=== PATIENT | male | born 1950 | race Caucasian/White ===

== ENCOUNTER → 2017-03-19 | Outpatient (CLI) | payer OTHER ==
[2017-03-19 17:24] LABS: BASO % 0 % (0-3); EOS # 0.3 x10^3/uL (0.0-0.7); EOS % 4 % (0-3); HEMOGLOBIN 8.7 g/dL (13.0-17.5); LYMPH # 1.6 x10^3/uL (1.0-4.8); LYMPH % 24 % (24-48); MEAN CORPUSCULAR HEMOGLOBIN 28 pg (25-35); MEAN CORPUSCULAR HGB CONC 33 g/dL (31-37); MEAN CORPUSCULAR VOLUME 85 fL (79-100); MONO % 15 % (0-9); NEUT # 3.8 x10^3uL (1.8-7.7); NEUT % 56 % (31-73); PLATELET COUNT 136 x10^3/uL (140-400); RED BLOOD COUNT 3.06 x10^6/uL (4.30-5.70); RED CELL DISTRIBUTION WIDTH 18.9 % (11.5-14.5); WHITE BLOOD COUNT 6.7 x10^3/uL (4.0-11.0)
[2017-03-19 17:30] LABS: ALBUMIN/GLOBULIN RATIO 0.7 (1.0-1.7); CALCIUM 7.4 mg/dL (8.5-10.1); CREATININE 0.9 mg/dL (0.7-1.3); GFR 84.2; TOTAL BILIRUBIN 0.7 mg/dL (0.2-1.0); TOTAL PROTEIN 4.9 g/dL (6.4-8.2)
== END | disposition home or self-care (01) ==
LOC: SPEC 17:00
PROVIDERS: ATTEND Nurse Practitioner Family
DX: C22.8 Malignant neoplasm of liver, primary, unspecified as to type (principal)
CPT/HCPCS: 36415; 80053; 85025

== ENCOUNTER → 2017-03-20 | Outpatient (CLI) | payer OTHER ==
--- NOTE | 2017-03-20 15:46 | RAD ---
Abdominal ultrasound, 03/20/2017: History: Abdominal distention, hepatitis C The gallbladder contains echogenic material with associated posterior acoustic shadowing. The appearance is that of a combination of gallbladder sludge and calculi. The gallbladder wall is minimally thickened. The gallbladder is not distended. The common hepatic duct is of normal caliber. The liver demonstrates a heterogeneous echo pattern. There are multiple predominantly hypoechoic hepatic mass is seen. There margins tended be irregular with a heterogeneous internal echo pattern. The largest of these measures 4.6 cm and lies in the mid right lobe. At least 3 other smaller scattered liver lesions are seen. The pancreas was poorly defined due to overlying bowel. The upper abdominal aorta and inferior vena cava are unremarkable. Inferiorly those structures were obscured by bowel. The spleen is within normal limits in size measuring 12.8 cm in craniocaudad extent. No renal abnormality is detected. There is a moderate volume of ascites in the abdomen and pelvis. Pleural fluid is noted in the posterior gutters bilaterally. IMPRESSION: 1. Cholelithiasis. 2. Heterogeneous liver containing multiple masses. No previous studies are currently available for correlative purposes. 3. Moderate volume of ascites. 4. Small bilateral pleural effusions
== END | disposition home or self-care (01) ==
LOC: US 10:23 → EDUNIT# 11:00
PROVIDERS: ATTEND Nurse Practitioner Family
DX: B19.20 Unspecified viral hepatitis C without hepatic coma (principal); R16.0 Hepatomegaly, not elsewhere classified; K80.20 Calculus of gallbladder without cholecystitis without obstruction; J90 Pleural effusion, not elsewhere classified; R18.8 Other ascites
CPT/HCPCS: 76700

== ENCOUNTER 2018-03-01 04:20 | Emergency (ER) | payer OTHER ==
[~2018-03-01] VITALS: Ht 177.8 cm; Wt 99.3 kg
--- NOTE | 2018-03-01 04:44 | RAD ---
CT scan of the head without contrast 03/01/2018 Clinical History: Altered mental status. Bilateral arm weakness. Code stroke. Technique: Unenhanced, contiguous, 5 mm axial sections were obtained through the head. One or more of the following individualized dose reduction techniques were utilized for this study: 1. Automated exposure control. 2. Adjustment of the mA and/or kV according to patient size. 3. Use of iterative reconstruction technique. Findings: No previous imaging studies are available for comparison. There is generalized parenchymal atrophy. Areas of decreased attenuation are seen within the periventricular and subcortical white matter of both cerebral hemispheres consistent with areas of small vessel ischemic disease. No acute parenchymal abnormality is seen. No extra-axial fluid collection is noted. No skull fracture is seen. Impression: No acute intracranial abnormality is seen. This result was called to Dr. Marina at 0438 hours. Electronically signed by: Moses Donovan MD (03/01/2018 4:41 AM) [id number]
--- NOTE | 2018-03-01 04:52 | ED.ADGEN ---
Past History Past Medical History: Cancer, GERD, Hepatitis, Other Past Surgical History: Other Past Surgical History Esophageal varices banding x 6 Adult General Chief Complaint Chief Complaint " Okay..." .." No..." ... 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 Pt. reportedly in the penitentiary hospital/ clinic area the past couple weeks for complaints of nausea and vomiting. Pt. this morning seemed more confused on rounds after receiving Zofran for nausea and vomiting. Pt. somewhat poor historian would give his name , but not his date of . Most answers to questions was "No". Patient denies any pain. Patient denies any drug use. No specific ill contacts. Will move all ext. on request with prompting. Pt. has hx of Esophageal varices, cirrhosis of Liver, Hept. B, HTN, and Hepatocellular carcinoma. Pt. has under went banding of esophageal varices x 6. Pt. does have access to general penitentiary population [facility] Pt. previously a DNR, but recently change this status to full code. Pt. up to date on standard vaccinations tetanus and flu. Review of Systems Review of Systems Pt. denies complaints-very poor historian Constitutional: Denies fever or chills [] Eyes: Denies change in visual acuity, redness, or eye pain [] HENT: Denies nasal congestion or sore throat [] Respiratory: Denies cough or shortness of breath [] Cardiovascular: No additional information not addressed in HPI [] GI: Denies abdominal pain, bloody stools or diarrhea [] hx of Nausea and vomiting. : Denies dysuria or hematuria [] Musculoskeletal: Denies back pain or joint pain [] Integument: Denies rash or skin lesions [] Neurologic: Denies headache, focal weakness or sensory changes []Mental status change, increased confusion. Endocrine: Denies polyuria or polydipsia [] All other systems were reviewed and found to be within normal limits, except as documented in this note. Family History Family History Not currently available Current Medications Current Medications Current Medications Medications (Trade) Dose Ordered Sig/[place] Start Time Stop Time Status Last Admin Dose Admin Famotidine (Pepcid Vial) 20 mg 1X ONCE 03/01/18 06:00 03/01/18 06:01 DC 03/01/18 05:54 20 MG Folic Acid (FOLIC ACID SYRINGE for ER) 5 mg STK-MED ONCE 03/01/18 05:39 03/01/18 05:40 DC Metronidazole (Flagyl) 500 mg 1X ONCE 03/01/18 07:00 03/01/18 07:01 DC Multivitamins/ Minerals (Infuvite Adult) 10 ml STK-MED ONCE 03/01/18 05:39 03/01/18 05:40 DC Multivitamins/ Minerals 10 ml/ Folic Acid 1 mg/ Thiamine HCl 100 mg/Lactated Ringer's 1,011.2 ml @ 1,011.2 mls/hr 1X ONCE 03/01/18 06:00 03/01/18 06:59 DC 03/01/18 05:53 1,011.2 MLS/HR Neomycin Sulfate (Neomycin Sulfate) 1,000 mg 1X ONCE 03/01/18 07:00 03/01/18 07:01 DC Sodium Chloride 1,000 ml @ 100 mls/hr Q10H 03/01/18 05:30 03/01/18 07:25 DC 03/01/18 05:54 100 MLS/HR Sorbitol (Sorbitol Solution) 30 ml 1X ONCE 03/01/18 07:00 03/01/18 07:01 DC Thiamine HCl (Thiamine Vial) 200 mg STK-MED ONCE 03/01/18 05:38 03/01/18 05:39 DC See nursing for Custodial meds when they send fax - hx. Allergies Allergies Allergies Coded Allergies Type Severity Reaction Last Updated Verified NSAIDS (Non-Steroidal Anti-Inflamma Allergy Intermediate 03/01/18 Yes Physical Exam Physical Exam Constitutional: no acute distress, confused in appearance. [] HENT: Normocephalic, atraumatic, bilateral external ears normal, oropharynx moist, no oral exudates, nose normal. [] Eyes: PERRLA, EOMI, conjunctiva normal, no discharge. [] Neck: Normal range of motion, no tenderness, supple, no stridor. [] Cardiovascular:Heart rate regular rhythm, no murmur []PMI to Lt. Lungs & Thorax: Bilateral breath sounds equal at apex on auscultation [] Abdomen: Bowel sounds normal, soft, no tenderness, no masses, no pulsatile masses. Umbilicus hernia. Skin: Warm, dry, no erythema, no rash. [] Back: No tenderness, no CVA tenderness. [] Extremities: No tenderness, no cyanosis, no clubbing, ROM intact, no edema. Arthritic changes. A few superficial abrasions to knees. Neurologic: Alert to name, moves ext. 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 Does have clonus excess of 7 beats on dorsal flexion of feet. Psychologic: Affect flat, judgement appears limited insight, confused. Min. verbal or limited verbal responses. Current Patient Data Vital Signs Vital Signs Date Time Temp Pulse Resp B/P (MAP) Pulse Ox O2 Delivery O2 Flow Rate FiO2 03/01/18 06:43 82 12 117/78 (91) 100 Room Air 03/01/18 05:14 97.5 Lab Results Laboratory Tests Test 03/01/18 04:50 03/01/18 05:10 03/01/18 05:23 Urine Collection Type U cath Urine Color Yellow Urine Clarity Clear Urine pH 6.5 Urine Specific [place] 1.025 Urine Protein Trace (NEG-TRACE) Urine Glucose (UA) Neg mg/dL (NEG) Urine Ketones (Stick) 15 mg/dL (NEG) Urine Blood Neg (NEG) Urine Nitrite Neg (NEG) Urine Bilirubin Neg (NEG) Urine Urobilinogen Dipstick 2 mg/dL (0.2 mg/dL) Urine Leukocyte Esterase Neg (NEG) Urine RBC 0 /HPF (0-2) Urine WBC Occ /HPF (0-4) Urine Squamous Epithelial Cells Occ /LPF Urine Bacteria 0 /HPF (0-FEW) Urine Opiates Screen Neg (NEG) Urine Methadone Screen Neg (NEG) Urine Barbiturates Neg (NEG) Urine Phencyclidine Screen Neg (NEG) Urine Amphetamine/Methamphetamine Neg (NEG) Urine Benzodiazepines Screen Neg (NEG) Urine Cocaine Screen Neg (NEG) Urine Cannabinoids Screen Neg (NEG) Urine Ethyl Alcohol Neg (NEG) White Blood Count 4.7 x10^3/uL (4.0-11.0) Red Blood Count 4.40 x10^6/uL (4.30-5.70) Hemoglobin 11.3 g/dL (13.0-17.5) L Hematocrit 35.3 % (39.0-53.0) L Mean Corpuscular Volume 80 fL (79-100) Mean Corpuscular Hemoglobin 26 pg (25-35) Mean Corpuscular Hemoglobin Concent 32 g/dL (31-37) Red Cell Distribution Width 22.4 % (11.5-14.5) H Platelet Count 270 x10^3/uL (140-400) Neutrophils (%) (Auto) 62 % (31-73) Lymphocytes (%) (Auto) 23 % (24-48) L Monocytes (%) (Auto) 13 % (0-9) H Eosinophils (%) (Auto) 2 % (0-3) Basophils (%) (Auto) 1 % (0-3) Neutrophils # (Auto) 2.9 x10^3uL (1.8-7.7) Lymphocytes # (Auto) 1.1 x10^3/uL (1.0-4.8) Monocytes # (Auto) 0.6 x10^3/uL (0.0-1.1) Eosinophils # (Auto) 0.1 x10^3/uL (0.0-0.7) Basophils # (Auto) 0.0 x10^3/uL (0.0-0.2) Platelet Estimate Adequate (ADEQUATE) Hypochromasia Slight Anisocytosis Slight Microcytosis Slight Erythrocyte Sedimentation Rate 38 (0-15) H Reticulocyte Count (auto) 2.1 % (0.5-2.5) Prothrombin Time 12.7 SEC (9.4-11.4) H Prothrombin Time INR 1.3 (0.9-1.1) H PTT 27 SEC (23-33) D-Dimer (Carol) 2.22 mg/L (0.00-0.50) H Sodium Level 133 mmol/L (136-145) L Potassium Level 4.1 mmol/L (3.5-5.1) Chloride Level 97 mmol/L (98-107) L Carbon Dioxide Level 26 mmol/L (21-32) Anion Gap 10 (6-14) Blood Urea Nitrogen 21 mg/dL (8-26) Creatinine 1.3 mg/dL (0.7-1.3) Estimated GFR (Cockcroft-Gault) 54.9 Glucose Level 118 mg/dL (70-99) H Lactic Acid Level 1.6 mmol/L (0.4-2.0) Calcium Level 8.7 mg/dL (8.5-10.1) Magnesium Level 2.0 mg/dL (1.8-2.4) Total Bilirubin 1.3 mg/dL (0.2-1.0) H Direct Bilirubin 0.6 mg/dL (0.0-0.2) H Aspartate Amino Transferase (AST) 36 U/L (15-37) Alanine Aminotransferase (ALT) 34 U/L (16-63) Alkaline Phosphatase 228 U/L (46-116) H Ammonia 156 mcmol/L (11-34) H Creatine Kinase 25 U/L (39-308) L Troponin I Quantitative < 0.017 ng/mL (0-0.055) C-Reactive Protein 10.4 mg/L (0-3.3) H MD-Dmn-R-Type Natriuretic Peptide 45 pg/mL (0-124) Total Protein 6.8 g/dL (6.4-8.2) Albumin 2.5 g/dL (3.4-5.0) L Lipase 105 U/L (73-393) Thyroid Stimulating Hormone (TSH) 0.832 uIU/mL (0.358-3.740) Ethyl Alcohol Level < 10 mg/dL (0-10) Blood pH 7.46 (7.35-7.46) Blood Gas PCO2 34 mmHg (35-46) L Blood Gas PO2 92 mmHg (80-100) Blood Gas HCO3 24 mmol/L (21-28) Arterial Bld O2 Saturation (Calc) 98 % (92-99) FiO2 21 % EKG EKG My interpretation of EKG shows a sinus rhythm at 81 bpm. There is mild leftward axis. Some nonspecific contour changes but no findings acute STEMI of contralateral changes.[] Radiology/Procedures Radiology/Procedures My interpreation of CT of head shows no shift, mass, edema, fracture, or bleed. Does have generalized parenchymal atrophy and small vessel disease changes.[]. No obvious fracture of neck or dislocation.. My interpretation chest x-ray and abdomen shows no acute cardiopulmonary findings. No free air under the diaphragm. Abdomen portion film shows no findings of bowel obstruction. Nonspecific bowel gas pattern, but did have stool in the colon consistent with constipation. Course & Med Decision Making Course & Med Decision Making Pertinent Labs and Imaging studies reviewed. (See chart for details) Discussed presentation, testing and tx plan with Dr. Billy- requested pt be transfer to [facility]- under his care..Possible GI consult . Full Labs pending at time of transfer. Ammonia pending. Will tx clinically as if Encephalopathic- with oral meds Sorbitol 30, Flagyl 500, Neomycin 1000,. Give IV Thiamine, Folate and Pepcid IV . Consider NG placement if unable to tolerate oral meds or use rectal Sorbitol. [] Final Impression Final Impression 1. Mental status change[]- Encephalopathic ( Ammonia 156) 2. Hx. of Hept. B 3. Hx. of Esophageal varices 4. Hx. of Hepatocellular Carcinoma 5. Hx of HTN 6. Hx. of Cirrhosis 7. Hx. of Iron Def. Anemia Hgb. 11.3 8. Hx of Cholelithiasis 9. Hx. of Portal Hypertension 10.Malnutrition Alb. 2.5. 11. Elevated T. Mic = 1.3 12. Elevated D-dimer2.22 and INR1.3 13. Elevated Sed. 38 Critical Care-1 hrs. Emmett Disclaimer Emmett Disclaimer This electronic medical record was generated, in whole or in part, using a voice recognition dictation system. ADRIAN CALABRESE MD Mar 01, 2018 04:52
[2018-03-01] MEDS ORDERED: IV NORMAL SALINE 1,000ML 1,000 ML IV SCH (05:30)
[2018-03-01 05:33] LABS: BASO % 1 % (0-3); EOS # 0.1 x10^3/uL (0.0-0.7); EOS % 2 % (0-3); HEMATOCRIT 35.3 % (39.0-53.0); HEMOGLOBIN 11.3 g/dL (13.0-17.5); LYMPH # 1.1 x10^3/uL (1.0-4.8); LYMPH % 23 % (24-48); MEAN CORPUSCULAR HEMOGLOBIN 26 pg (25-35); MEAN CORPUSCULAR HGB CONC 32 g/dL (31-37); MEAN CORPUSCULAR VOLUME 80 fL (79-100); MONO # 0.6 x10^3/uL (0.0-1.1); MONO % 13 % (0-9); NEUT # 2.9 x10^3uL (1.8-7.7); NEUT % 62 % (31-73); PLATELET COUNT 270 x10^3/uL (140-400); RED CELL DISTRIBUTION WIDTH 22.4 % (11.5-14.5); WHITE BLOOD COUNT 4.7 x10^3/uL (4.0-11.0)
[2018-03-01] MEDS ORDERED: THIAMINE 200 MG/2 ML VIAL. IV ONE (05:38)
[2018-03-01] MEDS ORDERED: FOLIC ACID 5 MG/ML SYRINGE for ER IV ONE (05:39)
[2018-03-01] MEDS ORDERED: MVI, ADULT NO.4 WITH VIT K 10 ML VIAL IV ONE (05:39)
[2018-03-01 05:46] LABS: BILIRUBIN,URINE NEG (NEG); CLARITY,URINE CLEAR; COLOR,URINE YELLOW; GLUCOSE,URINE NEG (NEG); UROBILINOGEN,URINE 2 mg/dL (0.2 mg/dL)
[2018-03-01 05:47] LABS: BACTERIA,URINE 0 /HPF (0-FEW); NITRITE,URINE NEG (NEG); RBC,URINE 0 /HPF (0-2); SQUAMOUS EPITHELIAL CELL,UR OCC /LPF; WBC,URINE OCC /HPF (0-4)
[2018-03-01 05:51] LABS: BARBITURATES NEG (NEG); BENZODIAZEPINES NEG (NEG); CANNABINOIDS NEG (NEG); COCAINE NEG (NEG); METHADONE NEG (NEG); OPIATES NEG (NEG); PHENCYCLIDINE NEG (NEG)
[2018-03-01 05:52] LABS: AMPHETAMINE/METHAMPHETAMINE NEG (NEG)
[2018-03-01 05:56] LABS: ALBUMIN 2.5 g/dL (3.4-5.0); C REACTIVE PROTEIN 10.4 mg/L (0-3.3); CALCIUM 8.7 mg/dL (8.5-10.1); CREATININE 1.3 mg/dL (0.7-1.3); DIRECT BILIRUBIN 0.6 mg/dL (0.0-0.2); GFR 54.9; POTASSIUM 4.1 mmol/L (3.5-5.1); TOTAL BILIRUBIN 1.3 mg/dL (0.2-1.0); TOTAL PROTEIN 6.8 g/dL (6.4-8.2)
[2018-03-01] MEDS ORDERED: MVI, ADULT NO.4 WITH VIT K 10 ML, FOLIC ACID SYRINGE for ER 1 MG, THIAMINE INJ 100 MG i... IV ONE ×4 (06:00)
[2018-03-01] MEDS ORDERED: FAMOTIDINE 20 MG/2 ML VIAL IVP ONE (06:00)
[2018-03-01 06:02] LABS: HYPOCHROMIA SLIGHT; PLT ESTIMATE ADEQUATE (ADEQUATE)
[2018-03-01 06:03] LABS: ANISOCYTOSIS SLIGHT; MICROCYTOSIS SLIGHT
--- NOTE | 2018-03-01 06:13 | RAD ---
CT scan of the cervical spine without contrast 03/01/2018 Clinical history: Bilateral arm weakness. Neck injury. Technique: Unenhanced, contiguous, 0.625 mm axial sections were obtained through the cervical spine. Axial, coronal and sagittal reconstructed images were obtained. One or more of the following individualized dose reduction techniques were utilized for this study: 1. Automated exposure control. 2. Adjustment of the mA and/or kV according to patient size. 3. Use of iterative reconstruction technique. Findings: Sagittal and coronal reconstructed images demonstrate minimal lateral curvature of the cervical spine, convex to the left. Degenerative changes consisting of varying degrees of disc space narrowing, vertebral endplate sclerosis and minimal to mild anterior and posterior vertebral body osteophyte formation are seen throughout the cervical disc spaces. No fracture or subluxation of the cervical vertebrae is seen. Degenerative changes are seen involving the uncovertebral and facet joints throughout the cervical disc spaces. No definite area of significant central spinal canal stenosis is seen. Mild left neural foraminal stenosis is seen at C4-5. Very mild bilateral neural foraminal stenosis is seen at C5-6 and C6-7. IMPRESSION: Degenerative changes are seen involving cervical spine as outlined above. No fracture or subluxation cervical vertebrae is seen. Electronically signed by: Moses Donovan MD (03/01/2018 6:10 AM) [facility]
[2018-03-01 06:31] LABS: SEDIMENTATION RATE 38 (0-15)
--- NOTE | 2018-03-01 06:35 | EKG ---
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
[2018-03-01 06:41] LABS: BGAS PH 7.46 (7.35-7.46)
[2018-03-01 06:43] VITALS: BP 117/78
[2018-03-01] MEDS ORDERED: NEOMYCIN SULFATE 500 MG TABLET PO ONE (07:00)
[2018-03-01] MEDS ORDERED: metroNIDAZOLE 500 MG TABLET PO ONE (07:00)
[2018-03-01] MEDS ORDERED: SORBITOL 70% 30 ML SOLUTION. PO ONE (07:00)
--- NOTE | 2018-03-01 09:31 | RAD ---
Single view chest and upright and supine AP views abdomen 03/01/2018 Clinical indications: Altered mental status and abdominal pain. COMPARISON: None. FINDINGS: Cardiac and mediastinal silhouettes are unremarkable. No pleural effusion, pneumothorax or focal consolidation. There is a nonobstructive bowel gas pattern. Large amount of retained proximal colonic stool. No pneumoperitoneum. IMPRESSION: 1. No acute cardiopulmonary abnormality. 2. No radiographic evidence of bowel obstruction. 3. Moderate retained proximal colonic stool, may contribute to constipation. Electronically signed by: Maurilio Wolfe MD (03/01/2018 9:28 AM) [facility]
== END 2018-03-01 07:00 | disposition short-term general hospital (02) ==
LOC: EEVIPCON 04:20 → ER 04:20
DX: G93.40 Encephalopathy, unspecified (principal); I85.00 Esophageal varices without bleeding; D01.5 Carcinoma in situ of liver, gallbladder and bile ducts; I10 Essential (primary) hypertension; E46 Unspecified protein-calorie malnutrition; R79.1 Abnormal coagulation profile; R70.0 Elevated erythrocyte sedimentation rate; E80.7 Disorder of bilirubin metabolism, unspecified; K21.9 Gastro-esophageal reflux disease without esophagitis; Z86.2 Personal history of diseases of the blood and blood-forming organs and certain disorders involving the immune mechanism; Z68.31 Body mass index [BMI] 31.0-31.9, adult; Z88.6 Allergy status to analgesic agent
CPT/HCPCS: 36415; 36600; 51702; 70450; 72125; 74022; 80048; 80076; 80307; 81001; 82140; 82550; 82803; 83605; 83690; 83735; 83880; 84443; 84484; 85025; 85045; 85379; 85610; 85651; 85730; 86140; 86850; 86900; 86901; 87040; 93005; 96365; 96375; 99291; G0480; J3490; J7120; J7030

== ENCOUNTER → 2018-07-12 | Outpatient (CLI) | payer OTHER ==
[2018-07-12 15:15] LABS: BASO % 1 % (0-3); EOS # 0.2 x10^3/uL (0.0-0.7); EOS % 4 % (0-3); HEMATOCRIT 40.6 % (39.0-53.0); HEMOGLOBIN 13.4 g/dL (13.0-17.5); LYMPH # 1.3 x10^3/uL (1.0-4.8); LYMPH % 23 % (24-48); MEAN CORPUSCULAR HEMOGLOBIN 30 pg (25-35); MEAN CORPUSCULAR HGB CONC 33 g/dL (31-37); MEAN CORPUSCULAR VOLUME 91 fL (79-100); MONO # 0.9 x10^3/uL (0.0-1.1); MONO % 16 % (0-9); NEUT # 3.2 x10^3uL (1.8-7.7); NEUT % 57 % (31-73); PLATELET COUNT 168 x10^3/uL (140-400); RED BLOOD COUNT 4.48 x10^6/uL (4.30-5.70); RED CELL DISTRIBUTION WIDTH 18.8 % (11.5-14.5); WHITE BLOOD COUNT 5.7 x10^3/uL (4.0-11.0)
[2018-07-12 15:30] LABS: ALBUMIN 2.4 g/dL (3.4-5.0); ALBUMIN/GLOBULIN RATIO 0.6 (1.0-1.7); CALCIUM 8.4 mg/dL (8.5-10.1); CREATININE 1.1 mg/dL (0.7-1.3); GFR 66.4; PHOSPHORUS 3.4 mg/dL (2.6-4.7); POTASSIUM 3.9 mmol/L (3.5-5.1); TOTAL BILIRUBIN 1.6 mg/dL (0.2-1.0); TOTAL PROTEIN 6.1 g/dL (6.4-8.2); URIC ACID 4.6 mg/dL (3.5-7.2)
[2018-07-12 16:23] LABS: SEDIMENTATION RATE 8 (0-15)
== END | disposition home or self-care (01) ==
LOC: SPEC 14:18
PROVIDERS: ATTEND Family Medicine
DX: B18.2 Chronic viral hepatitis C (principal)
CPT/HCPCS: 36415; 80053; 82977; 83615; 84100; 84550; 85025; 85651